=== PATIENT | female | born 1995 | race Caucasian/White ===

== ENCOUNTER 2023-10-06 05:39 | Day surgery (SDC) | payer OTHER ==
[~2023-10-06] VITALS: Ht 175.3 cm; Wt 182.3 kg
[2023-10-06] VITALS (11 sets, daily range): BP systolic 105–141; BP diastolic 52–89; PULSE 85–106; RESP 11–26; TEMP 98.3; O2SAT 95–98
[~2023-10-06 05:39] MED LIST: ATOR20TA66 PO; GLIP5TAB23 PO; HYDR25TA5 PO; LISI20TA28 PO; METF-1203 PO
[2023-10-06] MEDS: famotidine 20mg tablet PO ONE (06:10)
[2023-10-06] MEDS: cefazolin 2gm/D5W 100mL 100 ML IV ONE (06:10)
[2023-10-06] MEDS: ringers solution, lacted 1,000 ML IV SCH (06:10)
[2023-10-06 06:57] LABS: BASOPHILS # (AUTO) 0.1 X10'3 (0-0.2); BASOPHILS % (AUTO) 0.5 % (0-1); EOSINOPHILS # (AUTO) 0.8 X10'3 (0-0.9); EOSINOPHILS % (AUTO) 5.7 % (0-6); LYMPHOCYTES # (AUTO) 3.4 X10'3 (1.1-4.8); LYMPHOCYTES % (AUTO) 23.5 % (21-51); MEAN CORPUSCULAR HEMOGLOBIN 28.9 PG (27.0-31.0); MEAN CORPUSCULAR HGB CONC 33.2 g/dL (33.0-36.5); MEAN CORPUSCULAR VOLUME 86.9 FL (78-98); MEAN PLATELET VOLUME 10.3 FL (7.4-10.4); MONOCYTES # (AUTO) 0.8 X10'3 (0-0.9); MONOCYTES % (AUTO) 5.8 % (2-12); NEUTROPHILS # (AUTO) 9.3 X10'3 (1.8-7.7); NEUTROPHILS % (AUTO) 64.5 % (42-75); PRE OP HEMATOCRIT 44.3 % (35.0-45.0); PRE OP HEMOGLOBIN 14.7 g/dL (12.0-16.0); PRE OP PLATELET COUNT 301 X10'3 (140-440); PRE OP WHITE BLOOD COUNT 14.4 10'3 (4.8-10.8); RED BLOOD COUNT 5.09 X10'6 (4.20-5.60); RED CELL DISTRIBUTION WIDTH 14.1 % (11.5-14.5)
[2023-10-06] MEDS ORDERED: bacitracin 15gm ointment TP ONE (07:00)
[2023-10-06] MEDS ORDERED: BUPIVAcaine/PF 2.5mg/ml (0.25%) 10ml vial ONE (07:00)
[2023-10-06 07:04] LABS: ALBUMIN 3.7 G/DL (3.4-5.0); ALBUMIN/GLOBULIN RATIO 0.8 (1.1-1.5); ALKALINE PHOSPHATASE 73 IU/L (46-116); BLOOD UREA NITROGEN 12 MG/DL (7-18); BUN/CREATININE RATIO 14.3 (10.0-20.0); CALCIUM 9.7 MG/DL (8.5-10.1); CHLORIDE 98 MMOL/L (99-107); CREATININE 0.84 MG/DL (0.40-0.90); PRE OP ALT 50 U/L (30-65); PRE OP ANION GAP 9 (8-16); PRE OP AST 41 U/L (10-37); PRE OP BILIRUB, TOTAL 0.5 MG/DL (0.0-1.0); PRE OP GLUCOSE 160 MG/DL (70-104); PRE OP SODIUM 135 MMOL/L (135-145); TOTAL CARBON DIOXIDE 28.1 MMOL/L (24-32); TOTAL PROTEIN 8.3 G/DL (6.4-8.2); eCRCL 104 ML/MIN; eGFR 81 ML/MIN
[2023-10-06] MEDS ORDERED: fentaNYL /PF 50mcg/ml 5ml ampule ONE (07:19)
[2023-10-06] MEDS ORDERED: MIDAZolam 1 MG/ML 5ML VIAL ONE (07:19)
[2023-10-06] MEDS ORDERED: sevoflurane 250ml liquid IH ONE (07:22)
[2023-10-06] MEDS ORDERED: cloNIDine hcl/PF 100mcg/ml inj ONE (07:24)
[2023-10-06] MEDS ORDERED: propofol inj 20 ML IV ONE (07:30)
[2023-10-06] MEDS ORDERED: ROPIVAcaine 0.5% (5mg/ml) 30ml vial ONE (07:30)
[2023-10-06] MEDS ORDERED: BUPIVAcaine/PF 7.5mg/ml (0.75%) 10ml vial ONE (07:30)
[2023-10-06] MEDS ORDERED: LIDOcaine 2% (20mg/ml) 5ml vial ONE (07:30)
[2023-10-06] MEDS ORDERED: ceFAZolin 1000mg inj ONE (08:15)
[2023-10-06] MEDS ORDERED: rocuronium 10mg/ml inj IV ONE (08:17)
[2023-10-06] MEDS ORDERED: labetalol 20mg/4ml (5mg/ml) syringe IV PRN (08:45)
[2023-10-06] MEDS ORDERED: enalaprilat dihydrate 2.5mg/2ml vial IV PRN (08:45)
[2023-10-06] MEDS ORDERED: morphine 2 MG/ML inj. syringe IV PRN (08:45)
[2023-10-06] MEDS ORDERED: ringers solution, lacted 1,000 ML IV SCH (08:45)
[2023-10-06] MEDS ORDERED: meperidine/PF 25mg/ml syringe IV PRN ×3 (08:45)
[2023-10-06] MEDS ORDERED: morphine 4 MG/ML inj SYRINge IV PRN (08:45)
[2023-10-06] MEDS ORDERED: ipratropium/albuterol 3ml nebule NEB PRN (09:40)
[2023-10-06] MEDS ORDERED: ketorolac trometh. 30mg/ml inj. IV PRN (09:40)
[2023-10-06] MEDS: ondansetron/PF 4mg/2ml inj IV PRN (09:52)
[2023-10-06] MEDS: acetaminophen 1,000mg/100ml IV 100 ML IV ONE (09:57)
[2023-10-06] MEDS: proCHLORperazine 10 MG/2 ml inj IV PRN (10:42)
== END 2023-10-06 11:14 | disposition home or self-care (01) ==
LOC: PAS 05:39
PROVIDERS: ATTEND Podiatrist Foot & Ankle Surgery
DX: M25.372 Other instability, left ankle (principal); G89.18 Other acute postprocedural pain; E66.9 Obesity, unspecified; K21.9 Gastro-esophageal reflux disease without esophagitis; Z79.84 Long term (current) use of oral hypoglycemic drugs; Z79.899 Other long term (current) drug therapy; Z98.890 Other specified postprocedural states; Z68.43 Body mass index [BMI] 50.0-59.9, adult; Z88.8 Allergy status to other drugs, medicaments and biological substances
CPT/HCPCS: 27695; 29895; 36415; 80053; 82948; 85025; 93005; A6222; C1713; J0131; J0690; J0735; J0780; J1100; J2250; J2405; J2704; J2710; J2795; J3010; J3490; J7120; Z7506; Z7508; Z7512; A4618; A6449; A7000

== ENCOUNTER 2024-07-18 09:13 | Day surgery (SDC) | payer OTHER ==
[2024-07-11 15:22] LABS: BASOPHILS # (AUTO) 0.1 X10'3 (0-0.2); BASOPHILS % (AUTO) 0.5 % (0-1); EOSINOPHILS % (AUTO) 6.9 % (0-6); LYMPHOCYTES # (AUTO) 3.6 X10'3 (1.1-4.8); LYMPHOCYTES % (AUTO) 23.8 % (21-51); MEAN CORPUSCULAR HEMOGLOBIN 28.4 PG (27.0-31.0); MEAN CORPUSCULAR HGB CONC 32.6 g/dL (33.0-36.5); MEAN CORPUSCULAR VOLUME 87.1 FL (78-98); MEAN PLATELET VOLUME 9.9 FL (7.4-10.4); MONOCYTES # (AUTO) 0.7 X10'3 (0-0.9); MONOCYTES % (AUTO) 4.9 % (2-12); NEUTROPHILS # (AUTO) 9.7 X10'3 (1.8-7.7); NEUTROPHILS % (AUTO) 63.9 % (42-75); PRE OP HEMATOCRIT 42.3 % (35.0-45.0); PRE OP HEMOGLOBIN 13.8 g/dL (12.0-16.0); PRE OP PLATELET COUNT 341 X10'3 (140-440); RED BLOOD COUNT 4.86 X10'6 (4.20-5.60); RED CELL DISTRIBUTION WIDTH 13.8 % (11.5-14.5)
[2024-07-11 15:24] LABS: PRE OP WHITE BLOOD COUNT 15.2 10'3 (4.8-10.8)
[2024-07-11 15:29] LABS: BILIRUBIN,URINE NEGATIVE (Neg); CLARITY,URINE CLEAR (Clear); COLOR,URINE YELLOW (Yellow); GLUCOSE, URINE NEGATIVE (Neg); KETONES,URINE NEGATIVE (Neg); LEUKOCYTE ESTERASE ,URINE NEGATIVE (Neg); NITRITES, URINE NEGATIVE (Neg); OCCULT BLOOD,URINE NEGATIVE (Neg); PROTEIN,URINE NEGATIVE (Neg); UROBILINOGEN,URINE 0.2 E.U/dL (0.2-1.0)
[2024-07-11 15:30] LABS: UA COLLECTION TYPE CLN CATCH MIDSTREAM
[2024-07-11 15:36] LABS: HCG SERUM QL NEGATIVE
[2024-07-11 15:49] LABS: ALBUMIN 3.6 G/DL (3.4-5.0); ALBUMIN/GLOBULIN RATIO 0.8 (1.1-1.5); ALKALINE PHOSPHATASE 77 IU/L (46-116); BLOOD UREA NITROGEN 14 MG/DL (7-18); BUN/CREATININE RATIO 16.1 (10.0-20.0); CALCIUM 9.8 MG/DL (8.5-10.1); CHLORIDE 98 MMOL/L (99-107); CREATININE 0.87 MG/DL (0.40-0.90); PRE OP ALT 44 U/L (30-65); PRE OP ANION GAP 8 (8-16); PRE OP AST 35 U/L (10-37); PRE OP BILIRUB, TOTAL 0.3 MG/DL (0.0-1.0); PRE OP GLUCOSE 149 MG/DL (70-104); PRE OP POTASSIUM 4.6 MMOL/L (3.4-5.1); PRE OP SODIUM 137 MMOL/L (135-145); TOTAL CARBON DIOXIDE 30.7 MMOL/L (24-32); eGFR 77 ML/MIN
[~2024-07-18] VITALS: Ht 175.3 cm; Wt 188.4 kg
[2024-07-18] VITALS (8 sets, daily range): BP systolic 126–147; BP diastolic 68–90; PULSE 106–120; RESP 16–29; TEMP 98; O2SAT 94–98
[~2024-07-18 09:13] MED LIST changes: +CEFAZOLIN 3GM/DEXTROSE 150mL 150 ML IV ONE; +[UNRECOGNIZED DRUG - OTHER] PO; +ibuprofen PO
[2024-07-18] MEDS: famotidine 20mg tablet PO ONE (10:41)
[2024-07-18] MEDS: VANCOMYCIN/WATER FOR INJ (PEG) 1.5GM/300 ML IVPB IV ONE (10:41)
[2024-07-18] MEDS: ringers solution, lacted 1,000 ML IV SCH (10:42)
[2024-07-18] MEDS ORDERED: BUPIVAcaine/PF 2.5mg/ml (0.25%) 10ml vial ONE (11:12)
[2024-07-18] MEDS ORDERED: bacitracin 15gm ointment TP ONE (11:12)
[2024-07-18] MEDS ORDERED: sevoflurane 250ml liquid IH ONE (12:43)
[2024-07-18] MEDS ORDERED: midazolam 1 mg/ML 2ml injection ONE (12:46)
[2024-07-18] MEDS ORDERED: fentaNYL /PF 50mcg/ml 5ml ampule ONE (12:46)
[2024-07-18] MEDS ORDERED: morphine 4 MG/ML inj SYRINge IV PRN (14:10)
[2024-07-18] MEDS ORDERED: acetaminophen 1,000mg/100ml IV 100 ML IV PRN (14:10)
[2024-07-18] MEDS ORDERED: HYDROmorphone/PF 0.2 MG/ML SYRINGE IV PRN ×2 (14:10)
[2024-07-18] MEDS ORDERED: ringers solution, lacted 1,000 ML IV SCH (14:10)
[2024-07-18] MEDS ORDERED: proCHLORperazine 10 MG/2 ml inj IV PRN (14:10)
[2024-07-18] MEDS ORDERED: morphine 2 MG/ML inj. syringe IV PRN (14:10)
[2024-07-18] MEDS ORDERED: labetalol 20mg/4ml (5mg/ml) syringe IV PRN (14:10)
[2024-07-18] MEDS ORDERED: hydrALAZINE 20mg/ml inj. IV PRN (14:10)
[2024-07-18] MEDS ORDERED: meperidine/PF 25mg/ml syringe IV PRN (14:10)
[2024-07-18] MEDS ORDERED: ondansetron/PF 4mg/2ml inj IV PRN (14:10)
[2024-07-18] MEDS ORDERED: ROPIVAcaine 0.5% (5mg/ml) 30ml vial ONE (14:16)
[2024-07-18] MEDS ORDERED: LIDOcaine 2% (20mg/ml) 5ml vial ONE (14:16)
[2024-07-18] MEDS ORDERED: propofol inj 20 ML IV ONE (14:16)
[2024-07-18] MEDS ORDERED: 0.9 % SODIUM CHLORIDE 10 ML VIAL ONE (14:16)
[2024-07-18] MEDS ORDERED: ondansetron/PF 4mg/2ml inj ONE (14:17)
[2024-07-18] MEDS ORDERED: dexamethasone sod phosphate 4mg/ml inj. ONE (14:17)
[2024-07-18] MEDS: bacitracin 15gm ointment TP ONE (15:40)
[2024-07-18] MEDS ORDERED: insulin regular, human 10 units/0.1 ml syringe SQ ONE (16:10)
[2024-07-18] MEDS: insulin regular, human 10 units/0.1 ml syringe SQ ONE (16:43)
== END 2024-07-18 16:59 | disposition home or self-care (01) ==
LOC: PAS 09:13
PROVIDERS: ATTEND Podiatrist Foot & Ankle Surgery
DX: S93.412A Sprain of calcaneofibular ligament of left ankle, initial encounter (principal); S93.492A Sprain of other ligament of left ankle, initial encounter; M25.472 Effusion, left ankle; M21.6X1 Other acquired deformities of right foot; F41.9 Anxiety disorder, unspecified; F32.A Depression, unspecified; I10 Essential (primary) hypertension; E11.9 Type 2 diabetes mellitus without complications; E78.5 Hyperlipidemia, unspecified; K21.9 Gastro-esophageal reflux disease without esophagitis; G43.909 Migraine, unspecified, not intractable, without status migrainosus; Z79.899 Other long term (current) drug therapy; X58.XXXA Exposure to other specified factors, initial encounter; Y93.89 Activity, other specified; Y92.89 Other specified places as the place of occurrence of the external cause; Y99.8 Other external cause status; Z98.890 Other specified postprocedural states
CPT/HCPCS: 27698; 36415; 73600; 80053; 81003; 82948; 84703; 85025; A6223; C1713; J0735; J1100; J1815; J2003; J2250; J2405; J2704; J2795; J3010; J3372; J3490; J7030; J7120; Z7506; Z7508; Z7512; 76000; A4618; A6253; A6449; A7000